=== PATIENT | female | born 1965 | race African-American/Black ===

== ENCOUNTER → 2018-02-04 | Outpatient (CLI) | payer BC ==
--- NOTE | 2018-02-04 11:10 | Diagnostic Imaging Report ---
Indication: History of breast carcinoma. Current study performed as part of the metastatic workup. Technique: The head was imaged in a 1.5 Lona magnet. Sequences obtained include sagittal and axial T1 FLAIR, axial T2 fast spin echo with fat saturation, axial T2 FLAIR, diffusion and ADC map. Gadolinium-enhanced axial and coronal T1 FLAIR obtained also. Comparison: None Findings: The size, contour, and configuration of the sulci, ventricles, and basal cisterns appear normal. Barth-white differentiation is normal. There is no restricted diffusion. There is no mass effect, midline shift, edema, or hemorrhage. There are no abnormal extra-axial or intra-axial fluid collections. The corpus callosum is unremarkable. The brainstem and cerebellum are unremarkable. The sella is unremarkable. Bone marrow signal within the visualized osseous structures appears age appropriate and unremarkable otherwise. There is slight diminished height of the visualized part of the C4 and C5 vertebra. This is not imaged well on the current study and seen only on the sagittal T1 sequence. Correlate clinically and suggest obtaining further imaging as needed. No abnormal enhancement is identified. Impression: Negative MRI brain with and without contrast. Incidental mid cervical spine abnormality as described above. Suggest further imaging as warranted clinically.
== END | disposition home or self-care (01) ==
LOC: MRI 09:07
DX: Z00.00 Encounter for general adult medical examination without abnormal findings (principal); Z85.3 Personal history of malignant neoplasm of breast
CPT/HCPCS: 70553; A9585

== ENCOUNTER 2018-06-16 08:59 | Outpatient (CLI) | payer BC ==
--- NOTE | 2018-06-16 11:25 | Diagnostic Imaging Report ---
Indication: Neck pain Technique: MRI examination of the cervical spine was performed in a 1.5 Lona magnet. Sequences obtained include sagittal and axial T1 and T2 fast spin echo, and sagittal STIR. Comparison: none Findings: Foramen magnum is unremarkable. C1-2 is unremarkable. C2-3 is unremarkable. C3-4 is unremarkable. C4-5 shows desiccation and narrowing of intervertebral disc with concentric wide-based disc bulge and uncovertebral spurs. There is mild stenosis of the neural foramen. C5-6 shows disc desiccation and narrowing, mild retrolisthesis with uncovertebral spurs and a concentric disc bulge. Mild foraminal stenosis demonstrated. C6-7 shows mild narrowing and desiccation of the disc, minimal retrolisthesis, concentric disc bulge. C7-T1 is unremarkable. Spinal cord appears normal. Bone marrow signal is normal. No abnormal fluid collections, soft tissue swelling identified. 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
== END 2018-06-16 10:59 | disposition home or self-care (01) ==
LOC: MRI 08:59
DX: M54.12 Radiculopathy, cervical region (principal)
CPT/HCPCS: 72141